=== PATIENT | female | born 1975 | race Caucasian/White ===

== ENCOUNTER 2016-10-05 12:37 | Emergency (ER) | payer OTHER ==
[~2016-10-05] VITALS: Ht 170.2 cm; Wt 65.8 kg
[~2016-10-05 12:37] MED LIST: LEVO0.0236
[2016-10-05 12:49] VITALS: BP 123/81
[2016-10-05] MEDS ORDERED: CLON1TAB PO (12:53)
[2016-10-05] MEDS ORDERED: CARB200T4 PO (12:53)
[2016-10-05] MEDS ORDERED: HYDR2TAB6 PO (12:53)
--- NOTE | 2016-10-05 14:30 | NUR ---
PT WHEELCHAIR ASSISTED TO BED 7 AT THIS TIME.
[2016-10-05] MEDS ORDERED: MORPHINE SULFATE 4 MG/ML SYR IM ONE (15:00)
--- NOTE | 2016-10-05 15:03 | NUR ---
PATIENT PRESENTS TO ED WITH LOWER BACK PAIN WITH C/O RIGHT HIP PAIN X1 DAY. NO TRAUMA. . PT STATES SHE HAS FOR 11 YEARS BUT IT GOTTEN WORST YESTERDAY . DENIES N/V/D; SKIN IS PINK/WARM/DRY; AAOX4;PAIN IS AGGRAVATED BY MOVEMENT; LUNGS CLEAR BL; HR EVEN AND REGULAR; PT DENIES ANY FEVER, CP, SOB, OR COUGH AT THIS TIME; PATIENT STATES PAIN OF 0/10 AT THIS TIME; VSS; PATIENT POSITIONED FOR COMFORT; HOB ELEVATED; BEDRAILS UP X2; BED DOWN. TEST PULLER AT BEDSIDE.
[2016-10-05 16:37] VITALS: BP 114/79
== END 2016-10-05 16:36 | disposition home or self-care (01) ==
LOC: MED 12:37
DX: G89.29 Other chronic pain (principal); M54.5 Low back pain
CPT/HCPCS: 81002; 81025; 96372; 99283; J2270